=== PATIENT | male | born 1955 | race Caucasian/White ===

== ENCOUNTER → 2016-12-05 | Outpatient (CLI) | payer MEDICAID ==
--- NOTE | 2016-12-05 16:41 | DX ---
PA and Lateral Chest History: Cough in a 61-year-old male diagnosed with influenza; comparison portable chest January 09. Findings: The heart and mediastinal contours are normal. Pulmonary vascularity is normal. There is central peribronchial thickening. No pleural effusion is seen. Linear opacity is noted in th e right infrahilar region which could reflect atelectasis or pneumonia are superimposed upon airways disease. Multiple orthopedic screws are noted projecting over the right humerus. Impression: Findings consistent with airways disease are noted. Right infrahilar opacity could refl ect atelectasis or superimposed pneumonia.
== END ==
LOC: FIMAGING 12:34 → EDSTATUS 12:35 → FIMAGING 12:36
PROVIDERS: ATTEND Family Medicine
DX: R07.9 Chest pain, unspecified (principal); R11.0 Nausea; R19.7 Diarrhea, unspecified; R94.2 Abnormal results of pulmonary function studies

== ENCOUNTER 2016-12-06 08:53 | Observation (INO) | payer MEDICAID ==
[2016-12-06] MEDS ORDERED: IPRATROPIUM/ALBUTEROL 3 ML DEYVIAL IH ONE (09:26)
[2016-12-06] MEDS ORDERED: NS 1,000 ML IV ONE (09:26)
[2016-12-06 10:10] LABS: % IMMATURE GRANULYOCYTES 0.6 % (0.0-1.1); ABSOLUTE IMMATURE GRANULOCYTES 0.04 10^3/uL (0.00-0.10); ADD DIFF? NO; ADD MORPH? NO; ADD SCAN? YES; FRAGMENT RBC FLAG 0 (0-99); HEMOGLOBIN 14.3 g/dL (13.7-17.5); LEFT SHIFT FLG 60 (0-99); LIPEMIA HEMOLYSIS FLAG 90 (0-99); MEAN CELL HEMOGLOBIN 33.3 pg (27.9-34.1); MEAN CELL HEMOGLOBIN CONCENTR. 35.8 g/dL (32.4-36.7); MEAN CELL VOLUME 93.2 fL (81.5-99.8); PLATELET CLUMPS FLAG 0 (0-99); PLATELET COUNT 111 10^3/uL (150-400); RED BLOOD CELL COUNT 4.29 10^6/uL (4.40-6.38); RED CELL DISTRIBUTION WIDTH 13.2 % (11.5-15.2)
[2016-12-06 10:12] LABS: ATYPICAL LYMPHOCYTE FLAG 300 (0-99)
[2016-12-06 10:21] LABS: INR 1.04 (0.83-1.16); PROTIME(PATIENT) 13.5 SEC (12.0-15.0)
[2016-12-06 10:22] LABS: APTT 25.7 SEC (23.0-38.0)
[2016-12-06 10:24] LABS: ANION GAP 13 mEq/L (8-16); BILIRUBIN,TOTAL 1.4 mg/dL (0.1-1.4); CALCIUM 8.4 mg/dL (8.5-10.4); CARBON DIOXIDE 21 mEq/l (22-31); CHLORIDE 93 mEq/L (97-110); CREATININE 0.9 mg/dL (0.7-1.3); GLOMERULAR FILTRATION RATE > 60; GLUCOSE 116 mg/dL (70-100); POTASSIUM 4.4 mEq/L (3.5-5.2); SODIUM 127 mEq/L (134-144)
[2016-12-06 10:35] LABS: SCAN NEGATIVE
[2016-12-06] MEDS ORDERED: ALBUTEROL 3 ML DEYVIAL ONE (11:17)
[2016-12-06] MEDS ORDERED: ALBUTEROL 3 ML DEYVIAL IH ONE (11:21)
--- NOTE | 2016-12-06 11:25 | DX ---
PA and Lateral Chest December 06, 2016 Indication: Dyspnea. Fever. Being treated for pneumonia. Comparison: Two-view chest dated December 05, 2016. Findings: Progressive dense airspace consolidation has developed in the anterior basilar segment of t he right lower lobe now obscuring the right hemidiaphragm on the PA view. Diffuse peribronchial thick ening and streaky linear ground-glass opacities throughout the mid and lower lung zones have otherwis e not significantly changed. Suspect new trace bilateral pleural effusions blunting the costophrenic angle posteriorly. Heart size normal. Hardware overlying the right humeral head is unchanged. Impression: Developing right lower lobe pneumonia since one day prior. Findings discussed with emergency department, Fernando Gary PA-C, on December 06, 2016, at 11:17 a.m.
--- NOTE | 2016-12-06 12:50 | EDPHY ---
H & P Stated Complaint: pna dx by pcp started on abx not feeling better Time Seen by Provider: 12/06/16 09:05 HPI/ROS: Chief complaint: Worsening pneumonia History of present illness: This is a 61-year-old male who presents to the emergency department for worsening pneumonia. Patient states he has been sick for the last few days. He did see his primary care doctor and states he was diagnosed with pneumonia and started on azithromycin. He took his 1st dose yesterday. He does report shortly thereafter he became nauseous and threw up and is wondering if he actually got the entire dose. He states he is feeling worse today. He has started to have trouble breathing and his chest feels tight. Review of systems: A 10 point review of systems was obtained and other than described above was negative - Personal History Current Tetanus/Diphtheria Vaccine: Yes Tetanus Vaccine Date: 2007 - Medical/Surgical History Hx Asthma: No Hx Chronic Respiratory Disease: No Hx Diabetes: No Hx Cardiac Disease: No Hx Renal Disease: No Hx Cirrhosis: No Hx Alcoholism: No Hx HIV/AIDS: No Hx Splenectomy or Spleen Trauma: No Other PMH: Sciatica, Rt shoulder surgery 2006, hypertension, backsurgery 2014, - Social History Smoking Status: Former smoker - Physical Exam Exam: General Appearance: Alert, unwell appearing. Eyes: Pupils equal and round no pallor or injection. ENT, Mouth: Mucous membranes moist. Respiratory: No use of accessary muscles or evidence of respiratory distress. Diffuse rales are noted. No rhonchi or wheezes. Cardiovascular: Regular rate and rhythm. Gastrointestinal: Abdomen is soft and nontender, no masses, bowel sounds normal. Neurological: Alert and oriented. Strength and sensation intact and symmetrical. No meningismus. Skin: Warm and dry, no rashes. Musculoskeletal: Neck is supple nontender. Extremities are symmetrical, full range of motion. Psychiatric: Patient is oriented X 3, there is no agitation. Constitutional: Initial Vital Signs Temperature (C) 37.5 C 12/06/16 08:58 Heart Rate 116 H 12/06/16 08:58 Respiratory Rate 20 12/06/16 08:58 Blood Pressure 124/75 H 12/06/16 08:58 O2 Sat (%) 92 12/06/16 08:58 O2 Delivery Mode Room Air Allergies/Adverse Reactions: No Known Allergies Allergy (Verified 12/06/16 08:56) Home Medications: Medication Instructions Recorded Lisinopril [Zestril 40 mg (*)] 40 mg PO DAILY 12/03/14 Multivitamins W-Minerals [Thera M 1 each PO DAILY 01/09/15 Plus Tablet (*)] amLODIPine BESYLATE [Norvasc 5 mg 5 mg PO DAILY 01/09/15 (*)] Carvedilol [Coreg (*)] 6.25 mg PO BIDMEAL #60 tab 01/11/15 Azithromycin 250 mg PO DAILY 12/06/16 Herbals/Supplements -Info Only 1 ea PO DAILY 12/06/16 Magnesium Oxide [Magnesium Oxide 400 mg PO HS 12/06/16 400 mg (*)] [place]-3 Fatty Acids [Fish Oil 1000 1,000 mg PO DAILY 12/06/16 mg (*)] guaiFENesin/CODEINE PHOSPHATE 10 ml PO Q4 PRN 12/06/16 [Guaiatussin AC Liquid] Medical Decision Making - Diagnostics Imaging: Chest x-ray with right lower lobe pneumonia developed since x-ray taken yesterday ED Course/Re-evaluation: Patient discussed with my secondary supervising physician Dr. Micheal Whitmore. Patient presents to the emergency department reporting he was recently diagnosed with pneumonia and is feeling worse. On presentation he is afebrile, tachycardic, otherwise vital signs are stable. Physical exam does reveal diffuse rales. Evaluation does reveal a new infiltrate on chest xray as compared to yesterday. Of note, I have reviewed labs obtained by his primary care doctor yesterday which did show a negative flu swab. I am not sure patient has adequately been started on antibiotics as he did throw up after his 1st dose yesterday. Still there is concerned that he is failing outpatient therapy if he did get the full dose of azithromycin. Therefore he is started on Levaquin and will be admitted for further evaluation and care. Plan has been discussed with the patient voiced understanding and agreement with it. Differential Diagnosis: Included but not limited to bronchitis, pneumonia, influenza - Data Points Laboratory Results: Laboratory Results 12/06/16 09:58 12/06/16 09:58 12/06/16 09:58 WBC 7.12 10^3/uL (3.80-9.50) RBC 4.29 L 10^6/uL (4.40-6.38) Hgb 14.3 g/dL (13.7-17.5) Hct 40.0 % (40.0-51.0) MCV 93.2 fL (81.5-99.8) MCH 33.3 pg (27.9-34.1) MCHC 35.8 g/dL (32.4-36.7) RDW 13.2 % (11.5-15.2) Plt Count 111 L 10^3/uL (150-400) MPV 10.0 fL (8.7-11.7) Neut % (Auto) 77.8 H % (39.3-74.2) Lymph % (Auto) 8.4 L % (15.0-45.0) [place] % (Auto) 12.5 % (4.5-13.0) Eos % (Auto) 0.3 L % (0.6-7.6) Baso % (Auto) 0.4 % (0.3-1.7) Nucleat RBC Rel Count 0.0 % (0.0-0.2) Absolute Neuts (auto) 5.54 10^3/uL (1.70-6.50) Absolute Lymphs (auto) 0.60 L 10^3/uL (1.00-3.00) Absolute Monos (auto) 0.89 H 10^3/uL (0.30-0.80) Absolute Eos (auto) 0.02 L 10^3/uL (0.03-0.40) Absolute Basos (auto) 0.03 10^3/uL (0.02-0.10) Absolute Nucleated RBC 0.00 10^3/uL (0-0.01) Immature Gran % 0.6 % (0.0-1.1) Immature Gran # 0.04 10^3/uL (0.00-0.10) PT 13.5 SEC (12.0-15.0) INR 1.04 (0.83-1.16) APTT 25.7 SEC (23.0-38.0) VBG Lactic Acid 1.6 mmol/L (0.7-2.1) Sodium 127 L mEq/L (134-144) Potassium 4.4 mEq/L (3.5-5.2) Chloride 93 L mEq/L (97-110) Carbon Dioxide 21 L mEq/l (22-31) Anion Gap 13 mEq/L (8-16) BUN 28 H mg/dL (7-23) Creatinine 0.9 mg/dL (0.7-1.3) Estimated GFR > 60 Glucose 116 H mg/dL (70-100) Calcium 8.4 L mg/dL (8.5-10.4) Total Bilirubin 1.4 mg/dL (0.1-1.4) Medications Given: Discontinued Medications Albuterol (Proventil Neb) 3 ml IH EDNOW ONE Stop: 12/06/16 11:22 Last Admin: 12/06/16 11:22 Dose: 3 ml Albuterol/Ipratropium (Duoneb) 3 ml IH EDNOW ONE Stop: 12/06/16 09:27 Last Admin: 12/06/16 10:07 Dose: 3 ml Sodium Chloride (Ns) 1,000 mls @ 0 mls/hr IV ONCE ONE PRN Reason: Wide Open Stop: 12/06/16 09:27 Last Admin: 12/06/16 10:03 Dose: 1,000 mls Departure - Departure Disposition: [facility] Inpatient Acute Clinical Impression: Pneumonia Qualifiers: Pneumonia type: due to unspecified organism Laterality: right Lung location: lower lobe of lung Qualifier Code: (J18.1) Lobar pneumonia, unspecified organism Condition: Good
[2016-12-06] MEDS ORDERED: ALBUTEROL 3 ML DEYVIAL IH PRN (12:59)
[2016-12-06] MEDS ORDERED: guaiFENesin/CODEINE PHOS 10 ML UDCUP PO PRN (13:03)
--- NOTE | 2016-12-06 13:28 | GHP ---
[f rep st] HISTORY AND PHYSICAL DATE OF ADMISSION: 12/06/2016 CHIEF COMPLAINT: Cough. HISTORY OF PRESENT ILLNESS: This is a 61-year-old male who presented with 3 days of cough, shortness of breath. Also with diarrhea and nausea. He does have some sputum production. He also has some c hest pain with deep inspiration. He was diagnosed with pneumonia yesterday and given azithromycin, b ut was unable to keep that down and presents to the emergency department. He did have a little bit o f fever yesterday. REVIEW OF SYSTEMS: A 10-point review of systems was negative. PAST MEDICAL HISTORY: Hypertension. MEDICATIONS: Reviewed. SOCIAL HISTORY: No smoking. No alcohol. 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 FAMILY HISTORY: Reviewed and noncontributory. PHYSICAL EXAM: VITAL SIGNS: Afebrile, blood pressure is 109/72, heart rate 93, oxygen saturation is 90% on room air. GENERAL: The patient is well developed, no apparent distress. HEENT: Nonicteric sclerae. Extraocular movements intact. Dry mucous membranes. NECK: Supple. No thyromegaly. SHELIA GS: Good effort. Decreased breath sounds right base with coarse rhonchi bilaterally. CARDIOVASCULA R: Regular rate and rhythm. No murmurs, gallops. ABDOMEN: Positive bowel sounds. Soft, nontender , nondistended. No hepatosplenomegaly. EXTREMITIES: No clubbing, cyanosis, or edema. SKIN: Without rash. Dry, intact. NEUROLOGIC: Aler t and oriented x3. Moving all 4 extremities equally. PSYCH: Normal mood and affect. LABS: CBC is normal, although there is thrombocytopenia, some atypical lymphocytes. Chemistry shows sodium 127, creatinine is normal. Influenza is negative. Lactic acid is normal. Chest x-ray perso florencio reviewed and interpreted shows worsening right lower lobe infiltrate. ASSESSMENT: A 61-year-old male presenting with community-acquired pneumonia. PLAN: 1. Community-acquired pneumonia. I suspect this actually may be viral with thrombocytopenia as well as atypical lymphocytes. Though he does have purulent sputum and a dense lobar type pneumonia, we w ill treat with IV antibiotics. We will get a respiratory viral panel. 2. Hyponatremia, probably dehydration. Will continue IV fluids. 3. Hypertension. Blood pressure is a little bit on the low side. We will hold his medications. 4. Admission. Patient is to be admitted under observation status. /[id number]/MODL
[2016-12-06] MEDS: AZITHROMYCIN 250 MG TAB PO SCH (13:45)
[2016-12-06] MEDS: guaiFENesin 600 MG TAB.ER PO SCH ×2 (13:45→19:24)
[2016-12-06] MEDS: CARVEDILOL 6.25 MG TAB PO SCH (19:21)
[2016-12-06] MEDS: NS 1,000 ML IV SCH (20:46)
[2016-12-07] MEDS: CARVEDILOL 6.25 MG TAB PO SCH (08:59)
[2016-12-07 09:00] VITALS: BP 115/79; PULSE 82
[2016-12-07] MEDS: AZITHROMYCIN 250 MG TAB PO SCH (09:00)
[2016-12-07] MEDS: guaiFENesin 600 MG TAB.ER PO SCH (09:00)
[2016-12-07 09:03] VITALS: RESP 18; TEMP 98; O2SAT 91
[2016-12-07] MEDS: NS 1,000 ML IV SCH (09:53)
[2016-12-07 10:24] LABS: % IMMATURE GRANULYOCYTES 0.3 % (0.0-1.1); ABSOLUTE IMMATURE GRANULOCYTES 0.02 10^3/uL (0.00-0.10); ADD DIFF? NO; ADD MORPH? NO; ADD SCAN? YES; FRAGMENT RBC FLAG 0 (0-99); HEMATOCRIT 33.3 % (40.0-51.0); HEMOGLOBIN 11.7 g/dL (13.7-17.5); LEFT SHIFT FLG 10 (0-99); LIPEMIA HEMOLYSIS FLAG 90 (0-99); MEAN CELL HEMOGLOBIN 34.2 pg (27.9-34.1); MEAN CELL HEMOGLOBIN CONCENTR. 35.1 g/dL (32.4-36.7); MEAN CELL VOLUME 97.4 fL (81.5-99.8); MEAN PLATELET VOLUME 9.9 fL (8.7-11.7); PLATELET CLUMPS FLAG 0 (0-99); PLATELET COUNT 113 10^3/uL (150-400); RED BLOOD CELL COUNT 3.42 10^6/uL (4.40-6.38); RED CELL DISTRIBUTION WIDTH 13.3 % (11.5-15.2)
[2016-12-07 10:28] LABS: ATYPICAL LYMPHOCYTE FLAG 300 (0-99)
[2016-12-07 10:56] LABS: SCAN POSITIVE
[2016-12-07 11:00] LABS: ANION GAP 6 mEq/L (8-16); CALCIUM 6.6 mg/dL (8.5-10.4); CARBON DIOXIDE 21 mEq/l (22-31); CHLORIDE 107 mEq/L (97-110); CREATININE 0.5 mg/dL (0.7-1.3); GLOMERULAR FILTRATION RATE > 60; GLUCOSE 93 mg/dL (70-100); POTASSIUM 2.8 mEq/L (3.5-5.2); SODIUM 134 mEq/L (134-144)
[2016-12-07] MEDS ORDERED: predniSONE 20 MG TAB PO ONE (11:00)
[2016-12-07 11:01] LABS: MACROCYTES 1+; PLATELET ESTIMATE DECREASED (ADEQ)
[2016-12-07 12:27] LABS: ANION GAP 10 mEq/L (8-16); CALCIUM 8.5 mg/dL (8.5-10.4); CARBON DIOXIDE 21 mEq/l (22-31); CHLORIDE 99 mEq/L (97-110); CREATININE 0.6 mg/dL (0.7-1.3); GLOMERULAR FILTRATION RATE > 60; GLUCOSE 100 mg/dL (70-100); POTASSIUM 3.8 mEq/L (3.5-5.2); SODIUM 130 mEq/L (134-144)
--- NOTE | 2016-12-07 15:02 | GDS ---
[f rep st] DISCHARGE SUMMARY DISCHARGE DIAGNOSES: 1. Right lower lobe pneumonia, probably viral. 2. Hypertension. 3. Dehydration. HISTORY: This is a 61-year-old male presenting with cough along with nausea and some diarrhea. HOSPITAL COURSE: The patient did have a chest x-ray consistent with pneumonia. He does have no elev ated white blood cell count but does have low platelets. I suspect this may actually be a viral pneu monia. Respiratory viral panel has been sent off, but this is still pending. We did treat him with IV antibiotics and IV fluids, and he has improved. He is still coughing some. He is not hypoxic. H e will be discharged home. DISPOSITION: Home. DISCHARGE MEDICATIONS: Continue his home medicines. In addition, he will be given Zithromax and Omn icef. I did give a dose of prednisone prior to discharge to see if that might help with some of the bronchial inflammation that he might have. FOLLOWUP INSTRUCTIONS: He is to follow up with his primary care doctor in 3-4 days. /[id number]/MODL
== END 2016-12-07 15:57 | disposition home or self-care (01) ==
LOC: F1N 12:30
PROVIDERS: ADMIT Internal Medicine; ATTEND Internal Medicine
DX: J18.9 Pneumonia, unspecified organism (principal); I10 Essential (primary) hypertension; E86.0 Dehydration; Z87.891 Personal history of nicotine dependence
CPT/HCPCS: 71020; 96360; 99285; G0378; J0696; J1956

== ENCOUNTER → 2017-09-01 | Outpatient (CLI) | payer MEDICAID | LOC: FLAB 12:05 → EDSTATUS 12:06 → FIMAGING 12:07 | PROVIDERS: ATTEND Neurological Surgery | DX: Z09 Encounter for follow-up examination after completed treatment for conditions other than malignant neoplasm (principal); Z98.1 Arthrodesis status; M51.35 Other intervertebral disc degeneration, thoracolumbar region ==

== ENCOUNTER 2018-03-09 13:59 | Outpatient (CLI) | payer MEDICAID ==
[2018-03-09] MEDS ORDERED: FLUMAZENIL 0.5 MG/5 ML MDV IVP ONE (14:17)
[2018-03-09] MEDS ORDERED: NALOXONE HCL 0.4 MG/ML INJ ONE (14:17)
[2018-03-09] MEDS ORDERED: MIDAZOLAM 2 MG/2 ML VIAL ONE (14:18)
[2018-03-09] MEDS ORDERED: fentaNYL 100 MCG/2 ML INJ ONE (14:18)
--- NOTE | 2018-03-09 14:32 | PDGENHP ---
History & Physical Chief Complaint: MRI, needs cons sedation for claustro; LBP and leg weakness, prior lumbar s History of Present Illness: prior lumbar surgery, lbp and leg weakness Cardiorespiratory Assessment: RRR, lungs clear
[2018-03-09] MEDS ORDERED: MEPERIDINE 25 MG/ML SYR IVP PRN (14:33)
[2018-03-09] MEDS ORDERED: MIDAZOLAM 2 MG/2 ML VIAL IVP PRN (14:33)
[2018-03-09] MEDS ORDERED: FLUMAZENIL 0.5 MG/5 ML MDV IVP PRN (14:33)
[2018-03-09] MEDS ORDERED: NALOXONE HCL 0.4 MG/ML INJ IVP PRN (14:33)
[2018-03-09] MEDS ORDERED: fentaNYL 100 MCG/2 ML INJ IVP PRN (14:33)
--- NOTE | 2018-03-09 14:33 | PDPROPOC ---
Sedation Plan of Care Sedation Plan of Care: vital signs stable, mental status noted, patient educated of risks, benefits, alternatives, patient can tolerate sedation ASA Classification: ASA 3 Planned drugs: fentanyl, midazolam Mallampati Score: Class 2 Mallampati Reference Image: Patient passed 3-3-2 rule?: Yes
[2018-03-09] MEDS ORDERED: NS 1,000 ML IV SCH (14:45)
[2018-03-09] MEDS ORDERED: ACETAMINOPHEN 325 MG TAB PO PRN (16:09)
[2018-03-09 16:54] VITALS: BP 126/92
== END 2018-03-09 17:17 | disposition home or self-care (01) ==
LOC: FIMAGING 13:59
PROVIDERS: ATTEND Neurological Surgery
PROC: BR39ZZZ Magnetic Resonance Imaging (MRI) of Lumbar Spine (ICD-10-PCS; principal; 2018-03-09 16:19)
DX: M54.5 Low back pain (principal); M51.36 Other intervertebral disc degeneration, lumbar region; F40.240 Claustrophobia; Z98.1 Arthrodesis status
CPT/HCPCS: J2250; J2310; J3010

== ENCOUNTER 2018-05-05 12:56 | Day surgery (SDC) | payer MEDICAID ==
[2018-05-05] MEDS ORDERED: DEPO METHYLPREDNISOLONE 80 MG/ML SDV ONE (14:40)
[2018-05-05] MEDS ORDERED: LIDOCAINE 1% 300 MG/30 ML SDV ONE (14:40)
[2018-05-05] MEDS ORDERED: BUPIVACAINE 0.5% 30 ML SDV ONE (14:41)
[2018-05-05] MEDS ORDERED: IOPAMIDOL (ISOVUE-M 300) 15 ML VIAL ONE (14:41)
== END 2018-05-05 15:13 | disposition home or self-care (01) ==
LOC: FIMAGING 12:56
PROVIDERS: ATTEND Neurological Surgery
PROC: 3E0S3BZ Introduction of Anesthetic Agent into Epidural Space, Percutaneous Approach (ICD-10-PCS; principal; 2018-05-05)
PROC: 3E0S33Z Introduction of Anti-inflammatory into Epidural Space, Percutaneous Approach (ICD-10-PCS; principal; 2018-05-05)
DX: M47.817 Spondylosis without myelopathy or radiculopathy, lumbosacral region (principal); M54.5 Low back pain
CPT/HCPCS: J1040; Q9967

== ENCOUNTER 2018-07-14 07:14 | Inpatient (IN) | payer MEDICAID ==
[~2018-07-14 07:14] MED LIST: ACETAMINOPHEN 500 MG TAB PO ONE; GABAPENTIN 300 MG CAP PO ONE; ceFAZolin 2 GM/DEXTROSE 100 ML IV ONE; morphINE SR 15 MG TAB PO ONE
[2018-07-14] MEDS ORDERED: LR 1,000 ML IV ONE (07:29)
[2018-07-14] MEDS ORDERED: LIDOCAINE 1% 2 ML INJ ID PRN (07:29)
[2018-07-14] MEDS ORDERED: BUPIVACAINE 0.25% 30 ML SDV ONE (08:56)
[2018-07-14] MEDS ORDERED: SURGIFLO MATRIX KIT WITH THROMBIN 8 ML TP ONE (08:56)
[2018-07-14] MEDS ORDERED: CHLORHEXIDINE GLUC HIBICLENS 118 ML BTL TP ONE (08:56)
[2018-07-14] MEDS ORDERED: THROMBIN (BOVINE) 20,000 UNIT VIAL TP ONE (08:56)
[2018-07-14] MEDS ORDERED: BACITRACIN 50,000 UNITS/10 ML SYR IRR ONE (08:57)
[2018-07-14] MEDS ORDERED: EPINEPHrine 1 MG/ML INJ ONE (08:57)
[2018-07-14] MEDS ORDERED: MIDAZOLAM 2 MG/2 ML VIAL IVP ONE (09:52)
[2018-07-14] MEDS ORDERED: DEXAMETHASONE 4 MG/ML VIAL IVP PRN (09:53)
[2018-07-14] MEDS ORDERED: oxyCODONE IR 5 MG TAB PO PRN (09:53)
[2018-07-14] MEDS ORDERED: ALBUTEROL 3 ML DEYVIAL IH PRN (09:53)
[2018-07-14] MEDS ORDERED: ACETAMINOPHEN 500 MG TAB PO PRN (09:53)
[2018-07-14] MEDS ORDERED: HYDROmorphONE/DILAUDID 1 MG/ML INJ IVP PRN (09:53)
[2018-07-14] MEDS ORDERED: NALOXONE HCL 0.4 MG/ML INJ IVP PRN ×2 (09:53→18:13)
--- NOTE | 2018-07-14 09:55 | PDANEPAE ---
ANE History of Present Illness Lumbar fusion ANE Past Medical History - Cardiovascular History Hx Hypertension: Yes Hx Arrhythmias: No Hx Chest Pain: No Hx Coronary Artery / Peripheral Vascular Disease: No Hx CHF / Valvular Disease: No Hx Palpitations: No Cardiovascular History Comment: evaluated chest pain 01/09 [facility]. - for heart - Pulmonary History Hx COPD: No Hx Asthma/Reactive Airway Disease: No Hx Recent Upper Respiratory Infection: No Hx Oxygen in Use at Home: No Hx Sleep Apnea: No Sleep Apnea Screening Result - Last Documented: Positive Pulmonary History Comment: SOME SOB AND LIMITED ACTIVITY DUE TO PAIN - Neurologic History Hx Cerebrovascular Accident: No Hx Seizures: No Hx Dementia: No - Endocrine History Hx Diabetes: No - Renal History Hx Renal Disorders: No Renal History Comment: issues with incontinence related to back - Liver History Hx Hepatic Disorders: Yes Hepatic History Comment: liver enzymes elevated - Neurological & Psychiatric Hx Hx Neurological and Psychiatric Disorders: Yes Neurological / Psychiatric History Comment: depression, anxiety - Cancer History Hx Cancer: No - Congenital Disorder History Hx Congenital Disorders: No - GI History Hx Gastrointestinal Disorders: No Gastrointestinal History Comment: INCONT STOOLS - Other Health History Other Health History: DDD LUMBAR. HX - tinnitus. MILD ECZEMA. THROMBOCYTOPENIA (FROM HX) - Chronic Pain History Chronic Pain: Yes (LOW BACK) - Surgical History Prior Surgeries: right shoulder surgery 2006. 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 fusion L3,4,5 2014 ANE Review of Systems Review of Systems: - Exercise capacity METS (RN): 3 METS ANE Patient History - Allergies Allergies/Adverse Reactions: No Known Allergies Allergy (Verified 07/06/18 16:19) - Home Medications Home Medications: Lisinopril [Zestril 40 mg (*)] 40 mg PO DAILY 12/03/14 [Last Taken 07/08/18] amLODIPine BESYLATE [Norvasc 5 mg (*)] 5 mg PO DAILY 01/09/15 [Last Taken ] [place]-3 Fatty Acids [Fish Oil 1000 mg (*)] 1,000 mg PO DAILY 12/06/16 [Last Taken 07/08/18] oxyCODONE/APAP 5/325 [Percocet 5/325 (*)] 1 tab PO DAILY PRN 04/30/18 [Last Taken 07/13/18] Cholecalciferol Vit D3 [Vitamin D3 (*)] 1,000 units PO DAILY 05/26/18 [Last Taken 07/08/18] Escitalopram Oxalate [Lexapro 10 MG] 10 mg PO DAILY 05/26/18 [Last Taken ] Gabapentin [Neurontin 300 MG (*)] 300 mg PO TID 05/26/18 [Last Taken 07/14/18 06 :00] Multivitamins [Multivitamin (*)] 1 each PO DAILY 05/26/18 [Last Taken 07/08/18] Tetrahydrozoline 0.05% [Visine (*)] 1 drop EACHEYE DAILY PRN 05/26/18 [Last Taken 07/01/18] - NPO status NPO Since - Liquids (Date): 07/13/18 NPO Since - Liquids (Time): 20:00 NPO Since - Solids (Date): 07/13/18 NPO Since - Solids (Time): 20:00 - Smoking Hx Smoking Status: Former smoker - Family Anes Hx Family Hx Anesthesia Complications: none ANE Labs/Vital Signs - Vital Signs Blood Pressure: 116/78 Heart Rate: 65 Respiratory Rate: 16 O2 Sat (%): 94 Height: 177.8 cm Weight: 95.254 kg ANE Physical Exam - Airway Neck exam: FROM Mallampati Score: Class 2 Mouth exam: normal dental/mouth exam - Pulmonary Pulmonary: clear to auscultation - Cardiovascular Cardiovascular: regular rate and rhythym - ASA Status ASA Status: II ANE Anesthesia Plan Anesthesia Plan: general endotracheal anesthesia
[2018-07-14] MEDS ORDERED: PROPOFOL/EMULSION 500 MG/50 ML BOTTLE IV ONE ×8 (09:59→16:33)
[2018-07-14] MEDS ORDERED: REMIFENTANIL HCL 1 MG VIAL ONE ×7 (10:01→16:36)
[2018-07-14] MEDS ORDERED: SUCCINYLCHOLINE CHLORIDE 200 MG/10 ML SYR IVP ONE (10:07)
[2018-07-14] MEDS ORDERED: LIDOCAINE 2% 2 ML INJ ONE ×2 (10:08)
--- NOTE | 2018-07-14 10:14 | PDHPUP ---
History & Physical Update H&P update statement: This history and physical update is based on an assessment of the patient which was completed after admission or registration (within 24 hours), but prior to the surgery/procedure. H&P update: H&P reviewed & patient examined, no change in patient's condition since H&P completed
[2018-07-14] MEDS ORDERED: DEXAMETHASONE 4 MG/ML VIAL ONE (11:51)
[2018-07-14] MEDS ORDERED: ONDANSETRON 4 MG/2 ML VIAL ONE ×3 (11:51→18:48)
[2018-07-14] MEDS ORDERED: PHENYLEPHRINE HCL 100 MCG/ML SYR ONE (12:12)
[2018-07-14] MEDS ORDERED: ceFAZolin 1 GM VIAL ONE ×2 (14:14→17:15)
[2018-07-14] MEDS ORDERED: HYDROmorphONE/DILAUDID 2 MG/ML INJ ONE ×2 (15:08→18:26)
[2018-07-14] MEDS ORDERED: THROMBIN (BOVINE) 5,000 UNIT VIAL TP ONE (16:42)
[2018-07-14] MEDS ORDERED: BUPIVACAINE 0.5% 30 ML SDV ONE (17:40)
[2018-07-14] MEDS ORDERED: BACITRACIN ZINC 14.2 GM OINTTUBE TP ONE (17:44)
[2018-07-14] MEDS ORDERED: MAGNESIUM HYDROXIDE 30 ML UDCUP PO PRN (17:58)
[2018-07-14] MEDS ORDERED: POLYETHYLENE GLYCOL 3350 17 GM PKT PO PRN (17:58)
[2018-07-14] MEDS ORDERED: LACTULOSE 20 GM/30 ML UDCUP PO PRN (17:58)
[2018-07-14] MEDS ORDERED: diphenhydrAMINE 25 MG CAP PO PRN (17:58)
[2018-07-14] MEDS ORDERED: BISACODYL 10 MG SUPP PR PRN (17:58)
[2018-07-14] MEDS ORDERED: ONDANSETRON 4 MG/2 ML VIAL IVP PRN (17:58)
[2018-07-14] MEDS ORDERED: DIAZEPAM 5 MG TAB PO PRN (18:08)
[2018-07-14] MEDS ORDERED: HYDROmorphONE/DILAUDID 6 MG/30 ML PCA IV PRN (18:13)
--- NOTE | 2018-07-14 18:16 | POSTANESTH ---
Post Anesthetic Evaluation Cardiovascular Status: Normal, Stable Respiratory Status: Normal, Stable Level of Consciousness/Mental Status: Can Participate in Eval, Mildly Sleepy, Arousable Pain Control: Adequate, Prn Tx Ordered Nausea/Vomiting Control: Adequate, Prn Tx Ordered Complications Possibly Related to Anesthesia: None Noted
--- NOTE | 2018-07-14 18:19 | POSTOPPROG ---
Post Op Note Date of Operation: 07/14/18 Surgeon: Tristan Downs Supervisor Delivery Department: Matthew Calvo Anesthesia: GET(General Endotracheal), Local (Specify) Pre-op Diagnosis: Lumbar degenerative disc disease & stenosis w/ radiculopathy & claudication Post-op Diagnosis: Same Indication: Pain, weakness Procedure: Removal L3-5 hardware; TLIF L2-3 and L5-S1; PSF L2-S1 Findings: Adequate decompression and good hardware placement Inf/Abcess present in the surg proc area at time of surgery?: No EBL: 500-1000 Total fluids administered: 2800 mL Complications: None Drains: Elias Jimenes (Subfascial) Specimen(s): None
[2018-07-14] MEDS ORDERED: fentaNYL 100 MCG/2 ML INJ ONE (18:26)
[2018-07-14] MEDS: fentaNYL 100 MCG/2 ML INJ IVP PRN ×2 (18:35→18:53)
[2018-07-14] MEDS: ONDANSETRON 4 MG/2 ML VIAL IVP PRN ×2 (18:39→18:49)
[2018-07-14] MEDS: HYDROmorphONE/DILAUDID 2 MG/ML INJ IVP PRN ×2 (18:45→19:05)
[2018-07-14] MEDS ORDERED: PROMETHAZINE HCL 25 MG/ML INJ ONE (18:56)
[2018-07-14] MEDS ORDERED: METOCLOPRAMIDE 10 MG/2 ML VIAL ONE (18:56)
[2018-07-14] MEDS ORDERED: HYDROmorphONE/DILAUDID 2 MG/ML INJ IVP PRN (19:09)
[2018-07-14] MEDS ORDERED: PROMETHAZINE HCL 25 MG/ML INJ IVP PRN (19:32)
[2018-07-14] MEDS ORDERED: METOCLOPRAMIDE 10 MG/2 ML VIAL IVP ONE (19:45)
[2018-07-14] MEDS: LR 1,000 ML IV SCH (21:49)
[2018-07-14] MEDS: FAMOTIDINE 20 MG TAB PO SCH (21:51)
[2018-07-14] MEDS: SENNOSIDES/DOCUSATE SODIUM TAB PO SCH (21:51)
[2018-07-14] MEDS: GABAPENTIN 300 MG CAP PO SCH (21:51)
[2018-07-14] MEDS: ACETAMINOPHEN 500 MG TAB PO SCH (21:51)
[2018-07-14] MEDS: morphINE SR 15 MG TAB PO SCH (21:51)
[2018-07-14] MEDS: METHOCARBAMOL 750 MG TAB PO PRN (21:51)
[2018-07-14] MEDS: oxyCODONE IR 5 MG TAB PO PRN (21:54)
[2018-07-15] MEDS: ceFAZolin 2 GM/DEXTROSE 100 ML IV SCH ×3 (01:08→17:59)
[2018-07-15] MEDS: oxyCODONE IR 5 MG TAB PO PRN ×3 (02:12→15:11)
[2018-07-15 04:59] LABS: PLATELET COUNT 169 10^3/uL (150-400)
[2018-07-15] MEDS: GABAPENTIN 300 MG CAP PO SCH ×3 (06:09→21:58)
[2018-07-15] MEDS: ACETAMINOPHEN 500 MG TAB PO SCH ×3 (06:09→21:57)
--- NOTE | 2018-07-15 07:48 | NEUSURGPN ---
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 NAD. Eating/drinking and voiding. No f/c/n/v/d. No mcnamara/neck/ chest/abd or gu complaints. Objective: AAO x 3, PERRLA/EOMI no droop CN 2-12 grossly intact +lt touch 5/5 BUE/BLE = CDI Neuro Check Frequency: per routine Urinary Catheter in Place: No Catheter Insertion Date: 07/14/18 - Physician Discussed Patient with Dr.: Other (Yareli) Neurosurgery Physical Exam - Vitals, I&O, Labs I and O 07/14/18 07/15/18 07/16/18 05:59 05:59 05:59 Intake Total 4437 Output Total 1505 460 Balance 2932 -460 Weight 95.254 kg Intake: Oral (ml) 10 IV Intake (ml) 3550 IV Infused (ml) 877 Lr 1,000 ml @ 100 mls/hr 767 IV CONT RUPALI Rx#: [id number] ceFAZolin 2 GM/DEXTROSE 110 100 ml @ 200 mls/hr IV Q8H RUPALI Rx#:[id number] Output: Urine (ml) 300 450 Catheter 300 450 Estimated Blood Loss (ml) 1000 Emesis (ml) 0 MT Drain Output (ml) 205 10 Right Back Elias Jimenes 205 10 Vital Signs Temp Pulse Resp BP Pulse Ox 36.9 C 82 17 97/66 L 99 07/15/18 07:26 07/15/18 07:26 07/15/18 07:26 07/15/18 07:26 07/15/18 07:26 Laboratory Results 07/15/18 04:36 07/15/18 04:36 ICD10 Worksheet Patient Problems: Problems Problem Status Onset Chest pain Acute Low back pain Acute Lumbosacral stenosis Acute Pneumonia Acute
[2018-07-15] MEDS: SENNOSIDES/DOCUSATE SODIUM TAB PO SCH ×2 (09:13→21:58)
[2018-07-15] MEDS: FAMOTIDINE 20 MG TAB PO SCH ×2 (09:13→21:57)
[2018-07-15] MEDS: ENOXAPARIN 40 MG/0.4 ML SYR SC SCH (09:13)
[2018-07-15] MEDS: morphINE SR 15 MG TAB PO SCH ×2 (09:13→21:58)
--- NOTE | 2018-07-15 10:19 | PDMN ---
Medical Necessity Medical necessity: CPT 63364, [facility] S820 Lumbar Fusion, MC IP Only, 63 yo sp L2/3 , L5/S1, TLIF LUm [place] Fusion w/ Stealth, L2/S1 pedicle screw fixation, L3/5 Lumbar Hardware Removal.
--- NOTE | 2018-07-15 15:55 | ASMTCMCOM ---
CM Note CM Note Notes: Pt s/p planned surgery for lumbar DDD and stenosis. Pt recently admitted 05/28/18-06/05/18 for alcohol w/d. Pt was d/c with partner and ETOH resources, [facility] phone intake, [facility] HCBS application process started, PCP follow up and HC OT/PT. This admission PT rec [facility], OT rec home/HHC. Pt requests [facility] PT/OT again, [facility] alerted spoke with Fabian. CM to follow. D/c plan of care: Home with home health care Date Signed: 07/15/2018 03:54 PM Electronically Signed By:GELACIO Pedro
[2018-07-16] MEDS: GABAPENTIN 300 MG CAP PO SCH ×3 (05:04→21:19)
[2018-07-16] MEDS: ACETAMINOPHEN 500 MG TAB PO SCH ×3 (05:04→21:22)
[2018-07-16] MEDS: METHOCARBAMOL 750 MG TAB PO PRN ×2 (05:06→17:26)
[2018-07-16] MEDS ORDERED: TETRAHYDROZOLINE 0.05% 15 ML OPHT.BTL EACHEYE PRN (07:34)
--- NOTE | 2018-07-16 07:38 | NEUSURGPN ---
Assessment/Plan: Assessment: 63 yo male that is s/p L2-S1 PSF/revision/extension POD #2 Plan: -s/p L2-S1 revision/extension: Pt states he has some expected lower back pain -pain well controlled with current pain meds - will reduce daytime dose of MS contin to help with am confusion/over-sleepiness -PT/OT pending -brace to be worn when OOB -H/H 07/24 yesterday - recheck today -MT drain - continue today -Lovenox, TEDs, SCDs -post op xrays pending -call NS with any changes or issues -d/w Dr Donws Subjective: Pt resting in bed, feeling sleepy this am. Objective: AAOx3 NAD VSS MAEx4 Motor 5/5 BLE +LT JPx1 Urinary Catheter in Place: No Catheter Insertion Date: 07/14/18 - Physician Discussed Patient with Dr.: Other (Yareli) Neurosurgery Physical Exam - Vitals, I&O, Labs I and O 07/15/18 07/16/18 07/17/18 05:59 05:59 05:59 Intake Total 4437 2245 Output Total 1505 1835 60 Balance 2932 410 -60 Weight 95.254 kg 95.254 kg Intake: Oral (ml) 10 1950 IV Intake (ml) 3550 IV Infused (ml) 877 295 Lr 1,000 ml @ 100 mls/hr 767 95 IV CONT RUPALI Rx#: [id number] ceFAZolin 2 GM/DEXTROSE 110 200 100 ml @ 200 mls/hr IV Q8H RUPALI Rx#:[id number] Output: Urine (ml) 300 1550 Catheter 300 450 Toilet 575 Urinal 525 Estimated Blood Loss (ml) 1000 Emesis (ml) 0 MT Drain Output (ml) 205 285 60 Right Back Elias Jimenes 205 285 60 Other: Intake Quantity Yes Sufficient Number of Voids Toilet 1 Urinal 1 Vital Signs Temp Pulse Resp BP Pulse Ox 36.8 C 76 16 100/66 95 07/16/18 06:16 07/16/18 06:16 07/16/18 06:16 07/16/18 06:16 07/16/18 06:16 Laboratory Results 07/15/18 04:36 07/15/18 04:36 ICD10 Worksheet Patient Problems: Problems Problem Status Onset Chest pain Acute Low back pain Acute Lumbosacral stenosis Acute Pneumonia Acute
[2018-07-16] MEDS: ENOXAPARIN 40 MG/0.4 ML SYR SC SCH (09:07)
[2018-07-16] MEDS: MULTIVITAMINS 1 EACH TAB PO SCH (09:07)
[2018-07-16] MEDS: CHOLECALCIFEROL VIT D3 1,000 UNITS TAB PO SCH (09:07)
[2018-07-16] MEDS: SENNOSIDES/DOCUSATE SODIUM TAB PO SCH ×2 (09:08→21:50)
[2018-07-16] MEDS: ESCITALOPRAM OXALATE 10 MG TAB PO SCH (09:08)
[2018-07-16] MEDS: FAMOTIDINE 20 MG TAB PO SCH ×2 (09:09→21:19)
[2018-07-16] MEDS: amLODIPine BESYLATE 5 MG TAB PO SCH (09:19)
[2018-07-16] MEDS: CARVEDILOL 6.25 MG TAB PO SCH ×2 (09:19→18:44)
[2018-07-16] MEDS: LISINOPRIL 40 MG TAB PO SCH (09:20)
--- NOTE | 2018-07-16 13:53 | ASMTCMCOM ---
CM Note CM Note Notes: Pt [facility] Concrete Engineering Technician Marita [phone] came to visit pt. Marita will set up an [facility] functional eval for HCBS, apparently this eval did not happen for some reason after pt d/c from [facility] in May 2018. D/c plan remains home with [facility] Date Signed: 07/16/2018 01:52 PM Electronically Signed By:GELACIO Pedro
[2018-07-16] MEDS: oxyCODONE IR 5 MG TAB PO PRN ×2 (14:59→18:43)
[2018-07-16] MEDS: morphINE SR 15 MG TAB PO SCH (21:20)
[2018-07-17] MEDS: GABAPENTIN 300 MG CAP PO SCH ×3 (05:47→21:22)
[2018-07-17] MEDS: ACETAMINOPHEN 500 MG TAB PO SCH ×3 (05:48→21:21)
[2018-07-17] MEDS: METHOCARBAMOL 750 MG TAB PO PRN (05:52)
--- NOTE | 2018-07-17 08:42 | NEUSURGPN ---
Assessment/Plan: Assessment/Plan: Assessment: 63 yo male that is s/p L2-S1 PSF/revision/extension POD #3 Plan: -s/p L2-S1 revision/extension: Pt states he has some expected lower back pain -pain well controlled with current pain meds - reduced MS contin dose helping with confusion/dizziness -PT/OT -brace to be worn when OOB -H/H 8.5/25.1 today, received 2 units PRBC yesterday -MT drain - continue today- output 420 in last 24 hours -Lovenox, TEDs, SCDs -post op xrays show good postoperative alignment -call NS with any changes or issues -Dispo- working with therapies still today, will continue to watch h/h and maybe home or to SNF tomorrow vs sun pending therapy recommendations -d/w Dr Downs Subjective: Pt resting in bed,feels pain is a bit better this morning. Eager to work with PT today. No dizziness this morning. Objective: AAOx3 NAD VSS MAEx4 Motor 5/5 BLE +LT Incision c/d/i- dressed and stapled JPx1 Catheter Insertion Date: 07/14/18 - Physician Discussed Patient with Dr.: Other (Yareli) Neurosurgery Physical Exam - Vitals, I&O, Labs I and O 07/16/18 07/17/18 07/18/18 05:59 05:59 05:59 Intake Total 2245 1660 Output Total 1835 1000 Balance 410 660 Weight 95.254 kg Intake: Oral (ml) 1950 875 IV Infused (ml) 295 Lr 1,000 ml @ 100 mls/hr 95 IV CONT RUPALI Rx#: [id number] ceFAZolin 2 GM/DEXTROSE 200 100 ml @ 200 mls/hr IV Q8H RUPALI Rx#:[id number] Packed Red Blood Cells ( 785 ml) Output: Urine (ml) 1550 550 Catheter 450 Toilet 575 Urinal 525 550 MT Drain Output (ml) 285 450 Right Back Elias Jimenes 285 450 Other: Intake Quantity Yes Sufficient Number of Voids Toilet 1 1 Urinal 1 1 Number of Stools Toilet 1 Urinal 1 Vital Signs Temp Pulse Resp BP Pulse Ox 36.9 C 72 16 106/66 94 07/17/18 08:00 07/17/18 08:00 07/17/18 08:00 07/17/18 08:00 07/17/18 08:00 Laboratory Results 07/17/18 04:33 07/15/18 04:36 ICD10 Worksheet Patient Problems: Problems Problem Status Onset Chest pain Acute Low back pain Acute Lumbosacral stenosis Acute Pneumonia Acute
[2018-07-17] MEDS: FAMOTIDINE 20 MG TAB PO SCH ×2 (09:45→21:22)
[2018-07-17] MEDS: ESCITALOPRAM OXALATE 10 MG TAB PO SCH (09:45)
[2018-07-17] MEDS: MULTIVITAMINS 1 EACH TAB PO SCH (09:46)
[2018-07-17] MEDS: oxyCODONE IR 5 MG TAB PO PRN ×2 (09:46→14:19)
[2018-07-17] MEDS: CHOLECALCIFEROL VIT D3 1,000 UNITS TAB PO SCH (09:48)
[2018-07-17] MEDS: LISINOPRIL 40 MG TAB PO SCH (09:48)
[2018-07-17] MEDS: CARVEDILOL 6.25 MG TAB PO SCH ×2 (09:49→18:31)
[2018-07-17] MEDS: amLODIPine BESYLATE 5 MG TAB PO SCH (09:49)
[2018-07-17] MEDS: ENOXAPARIN 40 MG/0.4 ML SYR SC SCH (09:50)
[2018-07-17] MEDS: SENNOSIDES/DOCUSATE SODIUM TAB PO SCH ×2 (09:51→21:23)
--- NOTE | 2018-07-17 15:56 | ASMTCMCOM ---
CM Note CM Note Notes: Pt reports he will not have transport home, pt informed CM can arrange [place] [employer] transport at d/c. Spoke with pt and Tracy, they report they are sober and feel supported by services in place. They are to start couples counseling and each has a therapist. Pt and decline any additional resources. D/c plan of care remains home with [facility] and continued support of [facility] Date Signed: 07/17/2018 03:55 PM Electronically Signed By:GELACIO Pedro
[2018-07-17] MEDS: LR 1,000 ML IV SCH ×2 (16:26→21:22)
[2018-07-17] MEDS ORDERED: ALBUMIN 5% 500 ML IV ONE (18:00)
[2018-07-17] MEDS: morphINE SR 15 MG TAB PO SCH (21:38)
[2018-07-18] MEDS: GABAPENTIN 300 MG CAP PO SCH (05:55)
[2018-07-18] MEDS: ACETAMINOPHEN 500 MG TAB PO SCH (05:55)
[2018-07-18] MEDS: oxyCODONE IR 5 MG TAB PO PRN ×2 (05:55→11:28)
[2018-07-18 08:16] VITALS: BP 118/67
--- NOTE | 2018-07-18 08:29 | SOAPPROG ---
SOAP Progress Note Assessment/Plan: Assessment: 63 yo M POD #4 L2-S1 fusion revision Plan: stable and doing well overall PT/OT dc home today post op x-rays look good please call with neuro changes 07/18/18 08:28 Subjective: back pain improving, no leg pain, no weakness. Objective: Vital Signs Temp Pulse Resp BP Pulse Ox 36.7 C 70 16 118/67 96 07/18/18 08:00 07/18/18 08:00 07/18/18 08:00 07/18/18 08:00 07/18/18 08:00 Laboratory Results 07/18/18 04:40 07/15/18 04:36 07/17/18 07/18/18 07/19/18 05:59 05:59 05:59 Intake Total 1660 2150 450 Output Total 1000 690 300 Balance 660 1460 150 AAOx4, +FC PERRL, EOMI, no facial droop 5/5 + light touch C/D/I ICD10 Worksheet Patient Problems: Problems Problem Status Onset Chest pain Acute Low back pain Acute Lumbosacral stenosis Acute Pneumonia Acute
--- NOTE | 2018-07-18 08:33 | PDIAF ---
- Diagnosis Code Status: Full Code - Medication Management Discharge Medications: Medications to Continue on Transfer Lisinopril [Zestril 40 mg (*)] 40 mg PO DAILY 12/03/14 [Last Taken 07/08/18] amLODIPine BESYLATE [Norvasc 5 mg (*)] 5 mg PO DAILY 01/09/15 [Last Taken ] [place]-3 Fatty Acids [Fish Oil 1000 mg (*)] 1,000 mg PO DAILY 12/06/16 [Last Taken 07/08/18] oxyCODONE/APAP 5/325 [Percocet 5/325 (*)] 1 tab PO DAILY PRN 04/30/18 [Last Taken 07/13/18] Cholecalciferol Vit D3 [Vitamin D3 (*)] 1,000 units PO DAILY 05/26/18 [Last Taken 07/08/18] Escitalopram Oxalate [Lexapro 10 MG] 10 mg PO DAILY 05/26/18 [Last Taken ] Gabapentin [Neurontin 300 MG (*)] 300 mg PO TID 05/26/18 [Last Taken 07/14/18 06 :00] Multivitamins [Multivitamin (*)] 1 each PO DAILY 05/26/18 [Last Taken 07/08/18] Tetrahydrozoline 0.05% [Visine (*)] 1 drop EACHEYE DAILY PRN 05/26/18 [Last Taken 07/01/18] Carvedilol [Coreg (*)] 6.25 mg PO BIDMEAL #1 tab 06/05/18 [Last Taken 07/14/18 06:00] Acetaminophen [Tylenol ES 500 mg (*)] 1,000 mg PO Q8HRS tab 07/18/18 [Last Taken Unknown] Methocarbamol [Robaxin 750 mg (*)] 750 mg PO QID PRN tab 07/18/18 [Last Taken Unknown] morphINE SR [Ms Contin/Oramorph 15 mg (*)] 15 mg PO HS tab 07/18/18 [Last Taken Unknown] oxyCODONE IR [Oxycodone Ir (*)] 5 - 20 mg PO Q4HRS PRN tab 07/18/18 [Last Taken Unknown] Discharge Medications: Refer to the Discharge Home Medication list for PRN reason. PICC Care - Routine: N/A - Orders Services needed: Physical Therapy, Occupational Therapy Isolation Type: None Diet Recommendation: no restrictions on diet Diet Texture: Regular Texture Diet Lazo: Not applicable Activity/Weight Bearing Restrictions: LSO brace when out of bed Additional Instructions: discharge with lumbar fusion instructions follow up with Dr Downs in 2 weeks, to schedule appointment. - Follow Up Care Current Providers and Referrals: César Carrasco MD [Primary Care Provider] -
[2018-07-18] MEDS: ENOXAPARIN 40 MG/0.4 ML SYR SC SCH (09:23)
[2018-07-18] MEDS: FAMOTIDINE 20 MG TAB PO SCH (09:23)
[2018-07-18] MEDS: MULTIVITAMINS 1 EACH TAB PO SCH (09:24)
[2018-07-18] MEDS: CARVEDILOL 6.25 MG TAB PO SCH (09:24)
[2018-07-18] MEDS: ESCITALOPRAM OXALATE 10 MG TAB PO SCH (09:24)
[2018-07-18] MEDS: CHOLECALCIFEROL VIT D3 1,000 UNITS TAB PO SCH (09:26)
[2018-07-18] MEDS: amLODIPine BESYLATE 5 MG TAB PO SCH (09:27)
[2018-07-18] MEDS: LISINOPRIL 40 MG TAB PO SCH (09:27)
[2018-07-18] MEDS: SENNOSIDES/DOCUSATE SODIUM TAB PO SCH (09:28)
--- NOTE | 2018-07-18 12:07 | ASMTDCNOTE ---
Case Management Discharge Discharge Order Complete? Answers: Yes Patient to Obtain Answers: via Family Medications Transportation Arranged Answers: Other Notes: [place] Agency/Facility Transfer Answers: Yes Report Printed & Faxed to Receiving Agency Family Notified Answers: Yes Notes: by pt. Discharge Comments Notes: Spoke with pt and pt's RN. Pt ready to discharge home today with services from [facility] PT[facility]OT, [facility] and [facility]. Transportation arranged for noon today. [facility] notified of discharge Date Signed: 07/18/2018 12:06 PM Electronically Signed By:Delmis Subramanian
--- NOTE | 2018-07-18 12:08 | ASDISCHSUM ---
Discharge Information Plan Status:Home with Home Health Medically Cleared to Leave:07/18/2018 Discharge Date:07/18/2018 CM D/C Disposition:Home Health Service ADT D/C Disposition:Home Health Service Projected Discharge Date:07/16/2018 11:00 AM Transportation at D/C:Medicaid Transportation Discharge Delay Reason: Follow-Up Date:07/16/2018 11:00 AM Discharge Slot: Final Diagnosis:Lumbar Stenosis Placement Information Referral Type:*Home Health Care Services Referral ID:[id number] Provider Name:[facility] Address 1:[address] [place] [address] Address 2: City:[place] Selection Factors: State:[place] Patient Contact Information Contact Name:NICK Relationship:Life Partner Address:[address] [place] City:[place] Alternate Phone: State/Zip Code:[place] [address] Email: Financial Information Financial Class:Medicaid Primary Plan Desc:[place] Primary Plan Number:[id number] Secondary Plan Desc: Secondary Plan Number: Assessment Information LACE LACE Length of stay for Answers: 4-6 days current admission Acuity / Level of Answers: Yes Care: Did the patient have an inpatient admission? Comorbidities - select Answers: Opioid dependence all that apply / Chronic pain Other Notes: HTN # of Emergency department Answers: 0 visits in the last 6 months Social determinants Answers: Mental health diagnosis (anxiety, depression, pers onality disorders, etc.) Score: 15 Date Signed: 07/18/2018 12:07 PM Electronically Signed By:Delmis Subramanian [facility] CM Progress Note CM Note CM Note Notes: Pt s/p planned surgery for lumbar DDD and stenosis. Pt recently admitted 05/28/18-06/05/18 for alcohol w/d. Pt was d/c with partner and ETOH resources, P phone intake, [facility] HCBS application process started, PCP follow up and [facility] OT/PT. This admission PT rec HHC, OT rec home/C. Pt requests [facility] PT/OT again, [facility] alerted spoke with Fabian. CM to follow. D/c plan of care: Home with home health care Date Signed: 07/15/2018 03:54 PM Electronically Signed By:GELACIO Pedro [facility] CM Progress Note CM Note CM Note Notes: Pt Count includes the [facility] Admin Prog Coord Marita [phone] came to visit pt. Marita will set up an [facility] functional eval for HCBS, apparently this eval did not happen for some reason after pt d/c from [facility] in May 2018. D/c plan remains home with [facility] Date Signed: 07/16/2018 01:52 PM Electronically Signed By:GELACIO Pedro [facility] CM Progress Note CM Note CM Note Notes: Pt reports he will not have transport home, pt informed CM can arrange [place] Medicaid transport at d/c. Spoke with pt and Tracy, they report they are sober and feel supported by services in place. They are to start couples counseling and each has a therapist. Pt and decline any additional resources. D/c plan of care remains home with [facility] and continued support of [facility] Date Signed: 07/17/2018 03:55 PM Electronically Signed By:GELACIO Pedro Case Management Discharge Plan Note Case Management Discharge Discharge Order Complete? Answers: Yes Patient to Obtain Answers: via Family Medications Transportation Arranged Answers: Other Notes: [place] Agency/Facility Transfer Answers: Yes Report Printed & Faxed to Receiving Agency Family Notified Answers: Yes Notes: by pt. Discharge Comments Notes: Spoke with pt and pt's RN. Pt ready to discharge home today with services from [facility] PT/OT, [facility] and [facility]. Transportation arranged for noon today. [facility] notified of discharge Date Signed: 07/18/2018 12:06 PM Electronically Signed By:Delmis Subramanian Intervention Information
--- NOTE | 2018-07-21 16:54 | GOP ---
DATE OF OPERATION: 07/14/2018 SURGEON: Tristan Downs MD NEUROSURGEON: Tristan Downs MD. ANESTHESIA: General endotracheal and local. PREOPERATIVE DIAGNOSIS: 1. Lumbar spinal stenosis at L2-3 and L5-S1 with neurogenic claudication. 2. Degenerative disk disease at L2-3 and L5-S1 with radiculopathy. 3. Prior fusion of L3 through L5. POSTOPERATIVE DIAGNOSIS: 1. Lumbar spinal stenosis at L2-3 and L5-S1 with neurogenic claudication. 2. Degenerative disk disease at L2-3 and L5-S1 with radiculopathy. 3. Prior fusion of L3 through L5. PROCEDURE PERFORMED: 1. Removal of prior posterior hardware from L3 to L5. (CPT code 77889). 2. Exploration of prior fusion, L3 through L5. (CPT code 98539). 3. Arthrodesis with combined interbody and posterior approach, L2-3. (CPT code 82268). 4. Arthrodesis with combined interbody and posterior approach L5-S1. (CPT code 89497). 5. Placement of interbody grafts at L2-3 and L5-S1. (CPT code 70080 x 2). 6. Pedicle screw fixation L2 through S1. (CPT code 32232). 7. Spinal navigation using the [employer] system. (CPT code 61528). 8. Bone autograft obtained from the same incision. (CPT code 97212). 9. Use of bone morphogenetic protein and bone allograft. (CPT code 67953). FINDINGS: SPECIMENS: None. ESTIMATED BLOOD LOSS: 1000 mL. INDICATIONS: The patient is a 63-year-old gentleman who had a prior L3 through L5 interbody and inst rumented posterior fusion done in January 2015 for degenerative disk disease and radiculopathies. He h ad been doing well following that surgery for at least 3 years, but then he began having more symptom s including back pain and pain in both legs. His pain symptoms would get worse when he was ambulatin g and would improve with some rest. On exam, he had some chronic right anterior tibialis weakness, a nd his exam was also notable for absent Achilles' reflexes and sensory loss in a stocking distributio n in the right leg which was actually due to peripheral neuropathy. The patient had an MRI scan that demonstrated fusion at L3-4 and L4-5 with only mild residual neuroforaminal stenosis at those levels . At the adjacent L2-3 level, there was an annular disk bulge and bilateral facet arthropathy with j oint effusions causing moderate spinal canal and [id number] neuroforaminal stenosis. At the adjacent L5-S1 level, there was an annular disk bulge, bilateral facet arthropathy and epidural lipom atosis with mild spinal canal and left neuroforaminal stenosis and moderate right neuroforaminal sten osis. Due to his pain symptoms that are causing him some disability, as well as trouble with his bal ance to the point where he uses a walker or a cane, and given his imaging findings of adjacent level disease, both above and below his prior fusion, it was suggested to him that he could undergo an exte nsion of his fusion from L2-3 to L5-S1. He has tried other treatments including physical therapy and steroid injections which were not helpful; therefore, he wished to proceed. DESCRIPTION OF PROCEDURE: Prior to surgery, all the details including indications, risks, benefits, alternatives and expected recuperation were discussed with the patient and appropriate consent forms were signed. On the day of surgery, he was again identified in the preoperative area and the operati ve side was marked by the surgeon. He was brought to the operating room where general anesthesia was induced, and he was intubated without incident. All necessary lines and neuro monitoring were establ ished. He was then turned into the prone position on the Elias table. All pressure points were ap propriately padded. His low back was prepped and draped in the usual sterile fashion. A time-out wa s done per protocol. The incision was planned, based on his previous scar. Approximately 30 mL of 0 .25% Marcaine with epinephrine were injected along the planned incision for local anesthesia and vaso constriction. An approximately 6-inch incision was made with a #10 scalpel blade in the midline overlying the L2 th rough S1 levels. Cerebellar retractions were placed in the incision and it was carried deeper with P lasmaBlade to the lumbar fascia. The lumbar fascia was opened and muscle was removed in a subperiost eal plane from both sides of the L2 and S1 spinous processes and laterally over the lamina and the fa cets with the PlasmaBlade. Further hemostasis was obtained throughout the case with Aquamantys caute ry. The prior hardware was then exposed laterally, again with the PlasmaBlade. Once it was fully ex posed, attention was turned to removal. The locking caps x 6 were removed from the pedicle screw hea ds. There was some fusion bone mass around both rods that was removed with a Leksell rongeur. At th is point, both rods were removed from the pedicle screw heads, and finally all 6 pedicle screws were removed. The prior fused segments were tested and they moved as one solid mass, and visually there w as clearly a good posterior fusion at these levels. The Stealth Reference Array was then attached to the spinous process of S1 and O-arm spin was done. These images were then loaded onto the [employer] system and they were adequate for new instr umentation placement. First, the left L2 pedicle screw was placed by first making a cortical divot w ith the awl, and then using the awl-tipped tap on Powerease drill to create a tract to the L2 pedicle . The tract was explored with a ball-tipped probe and felt appropriate. The screw was then placed us ing the Powerease drill down the tract. The left L3, L4 and L5 screws were placed down the prior scr ew tracts and then the left S1 screw was placed in bicortical fashion using the same technique as at the left L2 pedicle. This same process was then repeated on the right side of the spine, first at L2 then L3, L4, L5 and finally S1, which was also placed bicortically. Once all screws were in place, they were stimulated and there were no evoked responses up to 20 mA on any of the screws. Attention was then turned toward decompression of the L2-3 level. The L2 spinous process was removed with Leksell rongeur. The removed bone was all saved and morselized for later use for fusion. Bila teral laminectomies were performed at this level using a Matchstick akosua and the high speed drill, fo llowed by [employer]. A right total facetectomy and foraminotomy were performed, again with the Matchstick akosua and Kerteresa's rongeurs. A medial facetectomy was performed on the left side. T he ligamentum flavum was removed with Kerteresa's rongeurs as well. There was now adequate decompress ion at this level, and attention was turned toward the diskectomy. The disk space was accessed through the right transforaminal approach and a complete diskectomy was p erformed using disk jeanette, ring curettes, serrated curettes and pituitary forceps. The disk space was sized using the Stealth system and an interbody graft was then selected and prepared with bone mo rphogenetic protein sponges, as well as autologous bone graft. The interbody graft was then placed i n the L2-3 disk space and appeared to be in good position, per the navigation. The graft was then ex panded to full height and the placement tool was removed. At this point, the Stealth Array was removed from the S1 spinous process and moved to the L1 spinous process. An O-arm spin was performed and it verified that all 10 pedicle screws were in very good pos ition. It also verified that the interbody graft at L2-3 was in good position. Attention was then turned to the L5-S1 level. Decompression was done here in a similar manner as L2- 3. Bilateral laminectomies were performed with the Matchstick akosua and the high speed drill and the Kerrison's rongeurs. At this level, on imaging it appeared that the disk space access would be very difficult from the right side; therefore, a total facetectomy and foraminotomy were done on the left side at L5-S1 and a medial facetectomy and foraminotomy were done on the right side. The ligamentum flavum was completely removed. At this point, attention was turned toward the diskectomy. Again, this was done through a left trans foraminal approach. It was performed in the same manner as at L2-3 with disk jeanette, ring curettes, serrated curettes and pituitary forceps. Once adequate diskectomy was achieved, another cage was luiz ected and prepared with bone morphogenetic protein-soaked sponges and bone autograft. This was then placed in the L5-S1 disk space and advanced anteriorly. Once it was in good position, it was expande d to full height and the placement tool was removed. At this point, attention was turned toward the posterolateral fusion. Two lordotic rods were placed in the pedicle screw heads and 10 set screws were placed to secure them. All of the set screws were tightened to appropriate torque strength. The residual L2-3 and 5-1 facets in the lamina were decort icated and some bone morphogenetic protein-soaked sponges, as well as autologous bone, cancellous all ograft chips and Progenics Plus were placed along the path of the posterior fusion. At this point, attention was turned to closure. The retractors were removed. A 10-Khmer round Jason son-Jimenes drain was placed in subfascial space and brought out through a separate stab incision at th e inferior right edge of the wound. First the muscle was reapproximated with interrupted 0 Vicryl titus tures, followed by interrupted 0 Vicryl sutures in the fascia. A layer of 2-0 Vicryl sutures were th en used in the deep adipose tissue. A layer of interrupted inverted 2-0 Vicryl sutures were then use d in the subcuticular layer. Finally, skin mone were used for the superficial skin closure. A 2- 0 nylon suture was used to anchor the drain to the skin. The bulb was then attached and bulb suction was applied. A layer of bacitracin ointment was placed along the mone and then gauze and tape we re placed over this. The drapes were then removed from the patient. At this point, 2 final AP and l ateral fluoroscopic images were obtained with the O-arm and everything looked appropriate. The O-arm was removed from the field and the patient was turned back into supine position on the bed. Care wa s then returned to Anesthesia for evaluation for extubation. CO-SURGEON: Matthew Calvo MD COMPLICATIONS: None apparent. DRAINS: Subfascial 10-Khmer Elias-Jimenes drain. IMPLANTS: The interbody graft at L2-3 was an 8 x 28 mm Elevate cage. The interbody graft at L5-S1 w as an 8 x 23 mm Elevate cage. Both manufactured by [employer]. The pedicle screw fixation system was [employer] Solera 5.5 x 6.0. The screw sizes were as follows: Left L2 6.5 x 45 mm, left L3 7.5 x 40 mm, left L4 7.5 x 45 mm, left L5 7.5 x 40 mm, left S1 6.5 x 40 mm, right L2 6.5 x 50 mm, right L3 7.5 x 45 mm, right L4 7.5 x 45 mm, right L5 7.5 x 40 mm, and right S1 6.5 x 45 mm. A 120 mm lordotic lucretia was used on the left side and a 100 mm lordotic lucretia was used on the right side, and 10 locking screws. DISPOSITION: It is expected the patient will be extubated in the operating room and then taken to [facility] anesthesia care unit for further recovery. /[id number]/MODL
== END 2018-07-18 12:49 | disposition home health service (06) | DRG 304 ==
LOC: F3N 07:14
PROVIDERS: ADMIT Neurological Surgery; ATTEND Neurological Surgery
DX: M48.062 Spinal stenosis, lumbar region with neurogenic claudication (principal); G62.9 Polyneuropathy, unspecified; M51.16 Intervertebral disc disorders with radiculopathy, lumbar region; M51.17 Intervertebral disc disorders with radiculopathy, lumbosacral region; M51.36 Other intervertebral disc degeneration, lumbar region; M51.37 Other intervertebral disc degeneration, lumbosacral region; I10 Essential (primary) hypertension; M47.817 Spondylosis without myelopathy or radiculopathy, lumbosacral region; Z98.1 Arthrodesis status
CPT/HCPCS: 97116-GP; 97161-GP; 97166-GO; 97530-GP; 97535-GO; C1713; C1762; J0171; J0330; J0690; J1100; J1170; J1650; J2250; J2370; J2405; J2550; J2704; J2765; J3010; P9016; P9041

== ENCOUNTER → 2018-08-17 | Outpatient (CLI) | payer MEDICAID | LOC: FIMAGING 15:24 | PROVIDERS: ATTEND Neurological Surgery | DX: Z98.1 Arthrodesis status (principal) ==

== ENCOUNTER → 2018-11-28 | Outpatient (CLI) | payer MEDICAID | LOC: FIMAGING 13:02 | PROVIDERS: ATTEND Neurological Surgery | DX: M47.817 Spondylosis without myelopathy or radiculopathy, lumbosacral region (principal); M51.36 Other intervertebral disc degeneration, lumbar region; Z98.1 Arthrodesis status ==

== ENCOUNTER → 2019-01-22 | Outpatient (CLI) | payer MEDICAID | LOC: FIMAGING 10:42 | PROVIDERS: ATTEND Neurological Surgery | DX: Z98.1 Arthrodesis status (principal) ==